=== PATIENT | male | born 1995 | race American Indian/Alaskan Native ===

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

== ENCOUNTER 2018-09-14 01:36 | Emergency (ER) | payer MEDICAID ==
[2018-09-14] MEDS ORDERED: BENADRYL ONE (01:56)
[2018-09-14] MEDS ORDERED: SOLU-Medrol ONE (01:56)
[2018-09-14] MEDS ORDERED: BENADRYL IV ONE (02:05)
[2018-09-14] MEDS ORDERED: SOLU-Medrol IV ONE (02:05)
[2018-09-14 02:11] VITALS: BP 126/61
--- NOTE | 2018-09-14 02:23 | Emergency Department Report ---
ED Allergic Reaction HPI - General Chief complaint: Allergic Reaction Stated complaint: POSS ALLERGIC REACTION Time Seen by Provider: 09/14/18 02:22 Source: patient, family Mode of arrival: Ambulatory Limitations: No Limitations - History of Present Illness Initial Comments: Pt is a 23 yo male who presents to the ED with concern for a possible allergic reaction that occurred just [employer]. He states that he was cooking fish tonight and felt that his "tongue was twisting around." He denies any wheezing, SOB, rash, itching, tongue edema, angioedema, or any other sx at all. The patient states he has eaten the same thing previously with no issues. He denies any allergies to any food. he denies any new medications, soaps, detergents, or anything new at all. - Related Data Home Medications Medication Instructions Recorded Confirmed Last Taken No Known Home Medications [No 10/01/16 10/01/16 Unknown Reported Home Medications] Allergies Allergy/AdvReac Type Severity Reaction Status Date / Time aspirin Allergy Swelling Verified 09/14/18 01:38 ED Review of Systems ROS: Stated complaint: POSS ALLERGIC REACTION Other details as noted in HPI Comment: All other systems reviewed and negative ED Past Medical Hx - Past Medical History Previous Medical History?: Yes Hx Seizures: Yes Hx Psychiatric Treatment: Yes (BiPolar, ADHD, OCD, Aspergers, Schizophrenia, Autism) Hx Asthma: Yes - Surgical History Past Surgical History?: No Additional Surgical History: Pt Denies - Social History Smoking Status: Never Smoker Substance Use Type: None - Medications Home Medications: Home Medications Medication Instructions Recorded Confirmed Last Taken Type No Known Home Medications [No 10/01/16 10/01/16 Unknown History Reported Home Medications] ED Physical Exam - General Limitations: No Limitations General appearance: alert, in no apparent distress, other (upon walking into the room the patient is comfortably sleeping) - Head Head exam: Present: atraumatic, normocephalic - Eye Eye exam: Present: normal appearance - ENT ENT exam: Present: normal exam, normal orophraynx, mucous membranes moist, other (no tongue edema, no facial edema, no angioedema, uvula is midline) - Respiratory Respiratory exam: Present: normal lung sounds bilaterally. Absent: respiratory distress, wheezes, rales, rhonchi, stridor, chest wall tenderness, accessory muscle use, decreased breath sounds, prolonged expiratory - Cardiovascular Cardiovascular Exam: Present: regular rate, normal rhythm, normal heart sounds. Absent: systolic murmur, rubs, gallop - Neurological Exam Neurological exam: Present: alert, oriented X3 - Psychiatric Psychiatric exam: Present: normal affect, normal mood - Skin Skin exam: Present: warm, dry, intact. Absent: cyanosis, diaphoretic, urticaria, petechiae, pallor ED Course Vital Signs 09/14/18 09/14/18 09/14/18 02:09 02:45 03:01 Temperature 97.5 F L 97.5 F L Pulse Rate 64 68 Respiratory 18 16 16 Rate Blood Pressure 126/61 O2 Sat by Pulse 97 100 Oximetry ED Medical Decision Making - Medical Decision Making Pt was concerned for a possible allergic reaction. States he was cooking fish and "felt his tongue twisting around." Pt has eaten this fish before with no issues. Pt denies any SOB, wheezing, sensation that his throat is closing, tongue edema, facial edema. His exam is completely benign. No rash, no urticaria, good breath sounds throughout, no wheezing, uvula is midline, no angioedema, no tongue edema. Pt given medications in the ED for an allergic reaction. He has no sx currently. Will have pt follow up with his PCP in the next 2-3 days. Return to the ED for any new or worsening symptoms. Critical care attestation.: If time is entered above; I have spent that time in minutes in the direct care of this critically ill patient, excluding procedure time. ED Disposition Clinical Impression: Allergic reaction Qualifiers: Encounter type: initial encounter Qualified Code(s): T78.40XA - Allergy, unspecified, initial encounter Disposition: TO HOME OR SELFCARE Is pt being admited?: No Does the pt Need Aspirin: No Condition: Stable Instructions: Allergies (ED) Additional Instructions: Follow up with your primary care doctor in the next 2-3 days. Return to the emergency room for any new or worsening symptoms. Referrals: VINEET CHOUDHURY MD [Primary Care Provider] - 2-3 Days Time of Disposition: 02:50 Print Language: YAKUT
[2018-09-14] MEDS ORDERED: PEPCID PO ONE (02:28)
== END 2018-09-14 02:45 | disposition home or self-care (01) ==
LOC: ED 01:36
DX: T78.40XA Allergy, unspecified, initial encounter (principal); Y92.89 Other specified places as the place of occurrence of the external cause; F31.9 Bipolar disorder, unspecified; F20.9 Schizophrenia, unspecified; J45.909 Unspecified asthma, uncomplicated; Z88.8 Allergy status to other drugs, medicaments and biological substances
CPT/HCPCS: 96374; 96375; 99283; J1200; J2930

== ENCOUNTER 2019-02-09 20:58 | Emergency (ER) | payer MEDICAID ==
[2019-02-09 21:06] VITALS: BP 141/72
[2019-02-09] MEDS ORDERED: BOOSTRIX IM ONE (21:18)
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
[2019-02-10] MEDS ORDERED: BOOSTRIX IM ONE (01:50)
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
== END 2019-02-10 02:40 | disposition home or self-care (01) ==
LOC: ED 20:58
DX: S60.312A Abrasion of left thumb, initial encounter (principal); G40.909 Epilepsy, unspecified, not intractable, without status epilepticus; F31.9 Bipolar disorder, unspecified; F20.9 Schizophrenia, unspecified; J45.909 Unspecified asthma, uncomplicated; F17.200 Nicotine dependence, unspecified, uncomplicated; Z79.899 Other long term (current) drug therapy; Z88.6 Allergy status to analgesic agent; W50.3XXA Accidental bite by another person, initial encounter; Y93.89 Activity, other specified; Y92.89 Other specified places as the place of occurrence of the external cause; Y99.8 Other external cause status
CPT/HCPCS: 90471; 90715; 99282